=== PATIENT | female | born 1990 | race African-American/Black ===

== ENCOUNTER 2020-10-23 10:50 | Emergency (ER) | payer OTHER | END 2020-10-23 12:55 | disposition home or self-care (01) | LOC: CSHERS 10:50 | DX: K04.7 Periapical abscess without sinus (principal); I10 Essential (primary) hypertension; Z79.899 Other long term (current) drug therapy | CPT/HCPCS: 99282 ==

== ENCOUNTER 2023-08-11 21:07 | Emergency (ER) | payer OTHER, SELFPAY ==
[2023-08-11 21:50] LABS: Bilirubin Neg (Negative); Blood, Urine Negative (Negative); Clarity Clear (Clear); Glucose, Urine (Dipstick) Normal (Negative); Ketone, Urine Negative (Negative); Leukocyte Negative (Negative); Nitrite Negative (Negative); Protein, Urine (Dipstick) Negative (Neg-Trace); Urobilinogen Normal mg/dL (Less than 2)
[2023-08-11 21:57] LABS: Bacteria/HPF Rare-Few HPF (None Seen); CAUTI Indications for Culture Pelvic or flank pain; RBC/HPF 0-3 HPF (0-3); Squamous Epithelial 0-3 HPF (0-3); WBC/HPF 0-3 HPF (0-3)
[2023-08-11 21:59] LABS: Urine Culture Reflex No No
[2023-08-11] MEDS ORDERED: Fluorescein Opthalmic Strip ONE ×2 (22:43→22:44)
[2023-08-11] MEDS ORDERED: Ketorolac Tromethamine 30 MG (1 mL) VIAL ONE (22:43)
[2023-08-11] MEDS ORDERED: Proparacaine 0.5% Opth 15 ML BOT ONE (22:44)
== END 2023-08-12 | disposition home or self-care (01) ==
LOC: CSHERS 21:07
DX: S05.01XA Injury of conjunctiva and corneal abrasion without foreign body, right eye, initial encounter (principal); G43.909 Migraine, unspecified, not intractable, without status migrainosus; H10.9 Unspecified conjunctivitis; I10 Essential (primary) hypertension; X58.XXXA Exposure to other specified factors, initial encounter
CPT/HCPCS: 81001; 96372; 99283; J1885

== ENCOUNTER 2023-10-19 23:01 | Emergency (ER) | payer SELFPAY ==
[2023-10-20] MEDS ORDERED: Dexamethasone 4 MG TAB ONE
[2023-10-20] MEDS ORDERED: Acetaminophen 500 MG TAB ONE
[2023-10-20 00:25] LABS: Influenza A by NAA Not Detected (NotDetected); Influenza B by NAA Not Detected (NotDetected); SARS-CoV-2 NAA Rapid Test Not Detected (NotDetected)
== END 2023-10-20 01:15 | disposition home or self-care (01) ==
LOC: CSHERS 23:01
DX: B34.9 Viral infection, unspecified (principal); I10 Essential (primary) hypertension
CPT/HCPCS: 71046; 87081; 87430; J8540